=== PATIENT | male | born 1990 | race Caucasian/White ===

== ENCOUNTER 2019-04-17 19:21 | Emergency (ER) | payer MEDICAID ==
[~2019-04-17] VITALS: Ht 170.2 cm; Wt 87.5 kg
[~2019-04-17 19:21] MED LIST: CIPR500T4 PO
[2019-04-17 19:27] VITALS: BP 151/87
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
[2019-04-17 20:11] VITALS: BP 151/87
--- NOTE | 2019-04-17 20:11 | NUR ---
Patient discharged with v/s stable. Written and verbal after care instructions given and explained. Patient verbalized understanding. Ambulatory with steady gait. All questions addressed prior to discharge. Advised to follow up with PMD.
== END 2019-04-17 20:11 | disposition home or self-care (01) ==
LOC: MED 19:21
DX: S81.801D Unspecified open wound, right lower leg, subsequent encounter (principal); Z23 Encounter for immunization; Z79.899 Other long term (current) drug therapy; X58.XXXD Exposure to other specified factors, subsequent encounter
CPT/HCPCS: 90715; 99283